=== PATIENT | female | born 1970 | race Two or more races ===

== ENCOUNTER 2018-06-23 20:28 | Emergency (ER) | payer OTHER ==
[~2018-06-23] VITALS: Ht 165.1 cm; Wt 69.4 kg
[2018-06-23 21:13] LABS: APPEARANCE,URINE Clear (CLEAR); BILIRUBIN,URINE Negative (NEGATIVE); BLOOD, URINE Large Ery/uL (NEGATIVE); COLOR,URINE Yellow (YELLOW); KETONES,URINE Negative (NEGATIVE); LEUKOCYTE ESTERASE ,URINE Small (NEGATIVE); NITRITE, URINE Negative (NEGATIVE); PROTEIN,URINE 30 mg/dl (NEGATIVE); UGLUCOSE Negative (NEGATIVE); UROBILINOGEN,URINE 0.2 EU/dL (0.2)
[2018-06-23 21:29] LABS: BACTERIA,URINE Moderate /HPF (None Seen); SQUAMOUS EPITHELIAL CELL,UR Few /HPF (None Seen); WBC,URINE 81-100 /HPF (0-3)
[2018-06-23 21:30] LABS: MUCUS,URINE Few /LPF (None Seen)
[2018-06-23 21:32] VITALS: BP 135/69
[2018-06-23] MEDS ORDERED: CEPHALEXIN MONOHYDRATE 500 MG CAPSULE PO ONE ×3 (21:46→22:00)
[2018-06-23] MEDS ORDERED: PHENAZOPYRIDINE HCL 200 MG TABLET ONE ×2 (21:46→21:58)
[2018-06-23] MEDS ORDERED: PHENAZOPYRIDINE HCL 200 MG TABLET PO ONE (22:00)
== END 2018-06-23 22:04 | disposition home or self-care (01) ==
LOC: ER 20:37
DX: N39.0 Urinary tract infection, site not specified (principal)
CPT/HCPCS: 81001; 84703; 87077; 87086; 87186; 99284; A4606; Z7610; 81000-TC

== ENCOUNTER 2019-06-14 18:38 | Emergency (ER) | payer OTHER ==
[~2019-06-14] VITALS: Ht 157.5 cm; Wt 74.8 kg
--- NOTE | 2019-06-14 18:57 | NUR ---
patient came in to the ER c/o "I have blood/burning w/urine started today but now bleeding more". On room air, breathing evenly and unlabored. Kept comfortable, will continue to monitor accordingly.
--- NOTE | 2019-06-14 19:01 | NUR ---
URINE COLLECTED AND SENT TO LAB
[2019-06-14 19:41] LABS: APPEARANCE,URINE Cloudy (CLEAR); BILIRUBIN,URINE MODERATE (NEGATIVE); BLOOD, URINE Large Ery/uL (NEGATIVE); COLOR,URINE Red (YELLOW); KETONES,URINE 15 (NEGATIVE); LEUKOCYTE ESTERASE ,URINE Large (NEGATIVE); NITRITE, URINE Positive (NEGATIVE); PROTEIN,URINE >=300 mg/dl (NEGATIVE); UGLUCOSE 100 MG/DL mg/dL (NEGATIVE)
[2019-06-14 19:55] LABS: BACTERIA,URINE 1+ /HPF (None Seen); RBC,URINE TOO NUMEROUS TO COUN /HPF (0-2); SQUAMOUS EPITHELIAL CELL,UR Few /HPF (None Seen); WBC,URINE 21-50 /HPF (0-3)
[2019-06-14] MEDS ORDERED: LIDOCAINE HCL/PF 1% 30 ML SDV ONE (20:18)
[2019-06-14] MEDS ORDERED: CEFTRIAXONE 1 G VIAL ONE (20:18)
[2019-06-14] MEDS ORDERED: CEFTRIAXONE 1 G VIAL IM ONE (20:30)
--- NOTE | 2019-06-14 20:43 | NUR ---
Patient discharged to home in stable condition. Rx and Written and verbal after care instructions given. Patient verbalizes understanding of instruction. no adverse reaction to medication noted .
[2019-06-14 20:49] VITALS: BP 114/64
== END 2019-06-14 20:50 | disposition home or self-care (01) ==
LOC: ER 18:42
DX: N39.0 Urinary tract infection, site not specified (principal); Z90.89 Acquired absence of other organs; Z90.49 Acquired absence of other specified parts of digestive tract
CPT/HCPCS: 81001; 84703; 87086; 96372; 99283; J0696; J3490; 81000-TC